=== PATIENT | female | born 1960 | race Hispanic/Latino ===

== ENCOUNTER 2016-10-31 18:18 | Emergency (ER) | payer MEDICARE ==
[2016-10-31 18:18] VITALS: BMI 31.6
[2016-10-31 18:30] VITALS: BP 122/83; PULSE 90; TEMP 99.1
[2016-10-31] MEDS ORDERED: TDAP Vaccine 0.5 mL Syr IM ONE (18:44)
--- NOTE | 2016-10-31 18:54 | ED PDOC ---
Arrival/HPI - General Chief Complaint: Trauma Time Seen by Provider: 10/31/16 18:44 Historian: Patient - History of Present Illness Narrative History of Present Illness (Text): 10/31/16 18:50 56-year-old female presents today with a right knee pain and facial pain status post trip and fall. Patient states she was walking she tripped she fell forward landing on both knees and both hands and hitting the face. She denies loss of consciousness. She denies headache or dizziness or weakness. She is complaining of nasal pain and maxillary pain and abrasions to the nose both palms and both knees. Patient is unsure of her last tetanus shot. States she took 2 tramadol prior to coming into the emergency room. Patient states incident occurred approximately 2 hours prior to arrival. Time/Duration: 1-3 hours Symptom Onset: Sudden Symptom Course: Improving Quality: Aching, Burning Severity Level: 3 Past Medical History - Provider Review Nursing Documentation Reviewed: Yes - Travel History Have you recently traveled outside [place] w/in the past 3 mons?: No - Infectious Disease Hx of Infectious Diseases: None - Tetanus Immunization Tetanus Immunization: Unknown - Cardiac Hx Hypertension: Yes Other/Comment: VSD - Pulmonary Hx Respiratory Disorders: No - Neurological Hx Neurological Disorder: No - HEENT Hx HEENT Disorder: No - Renal Hx Renal Disorder: No - Endocrine/Metabolic Hx Diabetes Mellitus Type 2: Yes - Hematological/Oncological Hx Blood Disorders: No - Integumentary Hx Dermatological Disorder: No - Musculoskeletal/Rheumatological Hx Back Pain: Yes - Gastrointestinal Hx Gastrointestinal Disorders: No - Genitourinary/Gynecological Hx Genitourinary Disorders: No - Psychiatric Hx Anxiety: Yes Hx Depression: Yes Hx Emotional Abuse: No Hx Physical Abuse: No Hx Substance Use: No - Surgical History Other/Comment: VSD , HAMMER TOES - Suicidal Assessment Feels Threatened In Home Enviroment: No Family/Social History - Physician Review Nursing Documentation Reviewed: Yes Family/Social History: Unknown Family HX Smoking Status: Never Smoked Hx Alcohol Use: Yes Frequency of alcohol use: Socially Hx Substance Use: No Hx Substance Use Treatment: No Allergies/Home Meds Allergies/Adverse Reactions: Allergies ciprofloxacin [From Cipro] Allergy (Verified 10/31/16 18:31) RASH Penicillins Allergy (Verified 10/31/16 18:31) ANAPHYLAXIS Home Medications: Home Meds Medication Instructions Recorded Confirmed Fluoxetine HCl [Prozac] 80 mg PO HS 09/28/13 06/02/17 Lamotrigine [Lamictal] 300 mg PO BID 02/26/13 10/31/16 ALPRAZolam [Xanax] 1 mg PO TID 10/31/16 10/31/16 Gabapentin [Neurontin] 300 mg PO HS 10/31/16 10/31/16 Meloxicam [Mobic] 15 mg PO DAILY 10/31/16 10/31/16 Risperidone [Risperdal] 3 mg PO HS 10/31/16 10/31/16 Review of Systems - Review of Systems Constitutional: absent: Fatigue, Fevers Eyes: absent: Vision Changes, Photophobia, Eye Pain ENT: absent: Sore Throat, Epistaxis, Sinus Congestion Respiratory: absent: SOB, Cough Cardiovascular: absent: Chest Pain Gastrointestinal: absent: Abdominal Pain, Nausea, Vomiting Musculoskeletal: Arthralgias (right knee pain). absent: Back Pain, Neck Pain Skin: Other (abrasion) Psychiatric: absent: Anxiety, Depression Physical Exam Vital Signs Reviewed: Yes Vital Signs Temp Pulse Resp BP Pulse Ox 10/31/16 18:25 99.1 F 90 16 122/83 95 Temperature: Afebrile Blood Pressure: Normal Pulse: Regular Respiratory Rate: Normal Appearance: Positive for: Well-Appearing, Non-Toxic, Comfortable Pain Distress: None Mental Status: Positive for: Alert and Oriented X 3 - Systems Exam Head: Present: Tenderness, Abrasion (abrasion noted maxilla and nose. No step- offs or crepitus). No: Swelling Pupils: Present: PERRL Extroacular Muscles: Present: EOMI Conjunctiva: Present: Normal Ears: Present: Normal, NORMAL TM Mouth: Present: Moist Mucous Membranes, Normal Tounge, Normal Teeth. No: Drooling, Trismus Pharnyx: Present: Normal Nose (External): Present: Abrasion (abrasion noted to the bridof the nose) Nose (Internal): No: No Active Bleeding, Septal Deviation, Septal Hematoma Neck: Present: Normal Range of Motion. No: MIDLINE TENDERNESS, Paraspinal Tenderness Respiratory/Chest: Present: Clear to Auscultation, Good Air Exchange. No: Respiratory Distress, Accessory Muscle Use Cardiovascular: Present: Regular Rate and Rhythm, Normal S1, S2. No: Murmurs, Other Abdomen: No: Tenderness Back: No: Midline Tenderness, Paraspinal Tenderness Upper Extremity: Present: Other (superficial abrasions noted to the palms bilaterally). No: Tenderness Lower Extremity: Present: Normal ROM, Tenderness (right knee: There is an abrasion noted over the anterior aspect of the knee. There is tenderness noted over the anterior aspect of the knee; full rom of knee; sensation intact; ambulates with steady gait.), Neurovascularly Intact, Other (abrasion noted over anterior aspect of left knee; full rom of knee. no tenderness. ). No: Swelling, Erythema, Deformity Neurological: Present: GCS=15 Skin: Present: Warm, Dry Psychiatric: Present: Alert, Oriented x 3 Medical Decision Making ED Course and Treatment: 10/31/16 18:55 56-year-old female with head injury and facial pain status post trip and fall CT head: FINDINGS: Brain: There is mild prominence of sulci, gyri and ventricles. There is no midline shift. There are no intra-axial or extra axial mass lesions or areas of hemorrhage. Rowan-white differentiation is maintained. Ventricles: See above. Bones/joints: Bony structures: Cranial vault is intact. Soft tissues: unremarkable Sinuses: There is no acute sinusitis. There are bilateral medial antrectomies. Mastoid air cells: Ears and mastoids: Middle ears and mastoids unremarkable. Orbits: Orbital contents are unremarkable. IMPRESSION: No acute intracranial abnormality CT maxillofacial bones: FINDINGS: Bones/joints: There are no nasal bone fractures. Maxillary spine is intact. There degenerative changes in the cervical spine. Soft tissues: There is minimal nasal soft tissue swelling. There are no facial masses. Orbits: Orbital contents are unremarkable. Sinuses: There is no acute sinusitis. There is minimal mucosal thickening in the maxillary sinuses. 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 Ears and mastoids: Visualized middle ears and mastoids are unremarkable. Dental: Streak artifact from dental fillings degrades image quality. Brain: No focal abnormalities are seen in visualized portion of the brain. Airway: Airway is unremarkable IMPRESSION: No facial bone fracture right knee xray; no fracture Tetanus updated pt refused denny wrap and knee immobilizer. Wounds cleaned and irrigated well with copious amounts of normal saline using high pressure irrigation. bacitracin and dressing applied. discussed all results in depth with patient; advised f/u with PMD. advised keeping wounds clean and dry. advised immediate return if signs of infection develop. Patient verbalizes understanding of discharge instructions and need for immediate followup. impression; abrasion, face, head injury, knee pain, abrasion , hand and knees keep wounds clean and dry apply bacitracin twice daily Take your medications for pain as prescribed by your primary care physician. follow up with the primary care physician within the next 2 days follow up with the orthopedist within the next 2 days return immediately if signs of infection develop; high fevers, increasing pain, increasing redness, swelling or purulent discharge develop. - RAD Interpretation Radiology Orders: 10/31/16 18:44 HEAD W/O CONTRAST [CT] Stat MAXILLOFACIAL W/O CONTRAST [CT] Stat KNEE W PATELLA RIGHT 3 VIEW [RAD] Stat - Medication Orders Current Medication Orders: Discontinued Medications Tetanus/Reduced Diphtheria/Acell Pertussis (Boostrix Vaccine Inj) 0.5 ml IM .ONCE ONE Stop: 10/31/16 18:45 Disposition/Present on Arrival - Present on Arrival Any Indicators Present on Arrival: Yes History of DVT/PE: No History of Uncontrolled Diabetes: Yes Urinary Catheter: No History of Decub. Ulcer: No History Surgical Site Infection Following: None - Disposition Have Diagnosis and Disposition been Completed?: Yes Diagnosis: Head injury, Knee pain, Abrasion, knee, Abrasion hand, Facial contusion Disposition: HOME/ ROUTINE Disposition Time: 19:45 Patient Plan: Discharge Patient Problems: Current Active Problems Problem Status Onset Abrasion hand Acute Abrasion, knee Acute Head injury Acute Knee pain Acute Condition: GOOD Discharge Instructions (ExitCare): Head Injury (ED), Abrasion (ED), Knee Pain ( ED) Additional Instructions: keep wounds clean and dry apply bacitracin twice daily Take your medications for pain as prescribed by your primary care physician. follow up with the primary care physician within the next 2 days follow up with the orthopedist within the next 2 days return immediately if signs of infection develop; high fevers, increasing pain, increasing redness, swelling or purulent discharge develop. Prescriptions: Bacitracin OINT 1 applic TP BID #1 tube Referrals: Dru Ramirez MD [Primary Care Provider] - Follow up with primary Gus Arechiga MD [Staff Provider] - Follow up with primary
--- NOTE | 2016-10-31 19:47 | CT ---
EXAM: CT Head Without Intravenous Contrast CLINICAL HISTORY: 56 years old, female; Pain; Headache; Headache not specified TECHNIQUE: Axial computed tomography images of the head/brain without intravenous contrast. This CT exam was performed using one or more of the following dose reduction techniques: automated exposure control, adjustment of the mA and/or kV according to patient size, and/or use of iterative reconstruction technique. EXAM DATE/TIME: 10/31/2016 6:44 PM COMPARISON: There are no prior studies for comparison. FINDINGS: Brain: There is mild prominence of sulci, gyri and ventricles. There is no midline shift. There are no intra-axial or extra axial mass lesions or areas of hemorrhage. Rowan-white differentiation is maintained. Ventricles: See above. Bones/joints: Bony structures: Cranial vault is intact. Soft tissues: unremarkable Sinuses: There is no acute sinusitis. There are bilateral medial antrectomies. Mastoid air cells: Ears and mastoids: Middle ears and mastoids unremarkable. Orbits: Orbital contents are unremarkable. IMPRESSION: No acute intracranial abnormality
--- NOTE | 2016-10-31 20:03 | CT ---
EXAM: CT Maxillofacial Without Intravenous Contrast CLINICAL HISTORY: 56 years old, female; Injury or trauma; Fall; Initial encounter; Blunt trauma (contusions or hematomas); Nose and maxilla; Additional info: Fall, facial injury, nasal and maxillary pain TECHNIQUE: Axial computed tomography images of the face without intravenous contrast. This CT exam was performed using one or more of the following dose reduction techniques: automated exposure control, adjustment of the mA and/or kV according to patient size, and/or use of iterative reconstruction technique. Coronal and sagittal reformatted images were created and reviewed. EXAM DATE/TIME: 10/31/2016 6:44 PM COMPARISON: There are no prior studies for comparison. FINDINGS: Bones/joints: There are no nasal bone fractures. Maxillary spine is intact. There degenerative changes in the cervical spine. Soft tissues: There is minimal nasal soft tissue swelling. There are no facial masses. Orbits: Orbital contents are unremarkable. Sinuses: There is no acute sinusitis. There is minimal mucosal thickening in the maxillary sinuses. 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 Ears and mastoids: Visualized middle ears and mastoids are unremarkable. Dental: Streak artifact from dental fillings degrades image quality. Brain: No focal abnormalities are seen in visualized portion of the brain. Airway: Airway is unremarkable IMPRESSION: No facial bone fracture
[2016-10-31 20:08] VITALS: RESP 18; O2SAT 97
--- NOTE | 2016-11-01 10:05 | RAD ---
HISTORY: knee pain COMPARISON: No prior FINDINGS: BONES: Normal. No fracture. JOINTS: Normal. No osteoarthritis. SOFT TISSUE: Normal. OTHER FINDINGS: None . IMPRESSION: Normal Bone Xray.
== END 2016-10-31 20:08 | disposition home or self-care (01) ==
LOC: ED 18:18
DX: S00.83XA Contusion of other part of head, initial encounter (principal); S60.512A Abrasion of left hand, initial encounter; S60.511A Abrasion of right hand, initial encounter; S80.212A Abrasion, left knee, initial encounter; S80.211A Abrasion, right knee, initial encounter; W01.0XXA Fall on same level from slipping, tripping and stumbling without subsequent striking against object, initial encounter; Y93.89 Activity, other specified; Y92.89 Other specified places as the place of occurrence of the external cause; Z23 Encounter for immunization

== ENCOUNTER 2018-06-07 13:28 | Outpatient (CLI) | payer MEDICARE | END 2018-06-07 13:29 | disposition home or self-care (01) | LOC: RAD 13:28 | DX: Z12.31 Encounter for screening mammogram for malignant neoplasm of breast (principal) ==

== ENCOUNTER 2018-06-14 07:52 | Day surgery (SDC) | payer MEDICARE ==
[2018-06-14] MEDS ORDERED: Propofol 10 mg/ml Inj (20 ML) ONE (09:37)
[2018-06-14 10:43] VITALS: PULSE 79
[2018-06-14] MEDS ORDERED: Sodium Chloride 0.9% 1,000 ML IV SCH (10:45)
[2018-06-14 11:24] VITALS: BP 132/81; RESP 16; TEMP 98; O2SAT 99
== END 2018-06-14 11:42 | disposition home or self-care (01) ==
LOC: ENDO 07:52
PROVIDERS: ATTEND Internal Medicine Gastroenterology
DX: K64.8 Other hemorrhoids (principal); K56.2 Volvulus; R19.5 Other fecal abnormalities; E11.9 Type 2 diabetes mellitus without complications
CPT/HCPCS: 45378; 82948; J2001; J2704; J7030; J7040

== ENCOUNTER 2018-07-05 13:26 | Outpatient (CLI) | payer MEDICARE | END 2018-07-05 13:27 | disposition home or self-care (01) | LOC: RAD 13:26 ==

== ENCOUNTER 2018-09-30 13:28 | Outpatient (CLI) | payer MEDICARE | END 2018-09-30 13:29 | disposition home or self-care (01) | LOC: LAB 13:28 ==

== ENCOUNTER 2018-10-14 12:36 | Outpatient (CLI) | payer MEDICARE | END 2018-10-14 12:37 | disposition home or self-care (01) | LOC: CARDIO 12:36 ==